=== PATIENT | male | born 1970 | race Caucasian/White ===

== ENCOUNTER 2016-05-06 20:24 | Emergency (ER) | payer OTHER ==
[2016-05-06] MEDS ORDERED: HYDROCODONE/ACETAMINOPHEN 5/325MG TABLET ONE ×2 (20:52→21:44)
[2016-05-06] MEDS ORDERED: ACETAMINOPHEN 650 MG SUP PR ONE (20:53)
[2016-05-06] MEDS ORDERED: Oseltamivir Phosphate 75 MG CAP ONE (22:02)
[2016-05-06] MEDS ORDERED: ONDANSETRON 4 MG ODT TAB ONE (22:02)
--- NOTE | 2016-05-07 09:31 | RAD ---
Exam: Two-view chest COMPARISON: None INDICATION: Cough, chest pain with cough. FINDINGS: PA and lateral views of the chest were obtained. Cardiac silhouette is within normal limits. Lung volumes are somewhat low. There is no focal airspace disease or pleural effusion. Bones of the chest wall within normal limits. IMPRESSION: No acute pulmonary process.
== END 2016-05-06 22:58 | disposition home or self-care (01) ==
LOC: ED 20:24
DX: J11.1 Influenza due to unidentified influenza virus with other respiratory manifestations (principal)
CPT/HCPCS: 71020; 87804; 99283 ×2; A9270 ×5